=== PATIENT | male | born 1955 | race Caucasian/White ===

== ENCOUNTER 2017-07-21 07:11 | Inpatient (IN) | payer MEDICAID, OTHER ==
[~2017-07-21] VITALS: Ht 190.5 cm; Wt 81.5 kg
[2017-07-21] MEDS ORDERED: PHENAZOPYRIDINE HCL 100 MG TAB PO ONE (07:45)
[2017-07-21] MEDS ORDERED: SODIUM CHLORIDE 0.9% 1,000 ML IV ONE ×2 (07:46)
[2017-07-21 08:06] LABS: Urine Bacteria NONE SEEN /hpf (None Seen); Urine Blood Negative /uL (Negative); Urine Specific Gravity 1.033 (1.001-1.035); Urine WBC 1 /hpf (0 - 3)
[2017-07-21 08:25] LABS: Basophils # (auto) 0 uL; Eosinophils # (auto) 0 uL; Lymphocytes # (auto) 2.7 uL; Neutrophils # (auto) 4.6 uL; Platelet Count (auto) 178 10^3/uL (140-450); White Blood Cell 7.9 10^3/uL (4.4-10.8)
[2017-07-21 08:27] LABS: Basophils % (auto) 0.4 % (0.0-2.0); Eosinophils % (auto) 0.6 % (0.0-7.0); Hematocrit 51.6 % (41.0-53.0); Hemoglobin 18.3 g/dL (13.5-17.5); Lymphocytes % (auto) 34.1 % (10.0-50.0); Mean Corpuscular Hemoglobin 33.1 pg (28.0-32.0); Mean Corpuscular Hgb Conc. 35.4 g/dL (32.0-36.0); Mean Corpuscular Volume 93.5 fL (80.0-100.0); Monocytes # (auto) 0.6 uL; Monocytes % (auto) 7.1 % (0.0-12.0); Neutrophils % (auto) 57.8 % (37.0-80.0); Nucleated Red Blood Cells % 0.4 %; Red Blood Cells 5.52 10^6/uL (4.5-5.90); Red Cell Distribution Width 12.2 % (11.8-14.3)
[2017-07-21 08:37] LABS: INR 0.95 (0.9-1.15); Partial Thromboplastin Time 25.7 sec (22.64-33.71); Prothrombin Time 10.4 sec (9.37-12.3)
[2017-07-21 08:50] LABS: Anion Gap 18 (5-15); BUN/Creatinine Ratio 10.9; Blood Urea Nitrogen 15 mg/dL (7-18); Carbon Dioxide 21 mmol/L (21-32); Chloride 89 mmol/L (98-107); GFR African American 67 mL/min; GFR Non-African American 56 mL/min; Potassium 4.8 mmol/L (3.5-5.1); Sodium 128 mmol/L (136-145)
[2017-07-21 08:51] LABS: Alanine Aminotransferase 38 U/L (16-61); Albumin 4.2 g/dL (3.4-5.0); Alkaline Phosphatase 200 U/L (45-117); Aspartate Aminotransferase 16 U/L (15-37); Bilirubin, Total 0.9 mg/dL (0.2-1.0); Calcium 8.9 mg/dL (8.5-10.1)
[2017-07-21 09:08] LABS: Glucose 512 mg/dL (74-106)
[2017-07-21] MEDS: SODIUM CHLORIDE 0.9% 1,000 ML IV SCH ×4 (09:29→22:09)
[2017-07-21] MEDS ORDERED: DEXTROSE (50%) 50ML SYRG IV PRN ×2 (09:30→16:00)
[2017-07-21] MEDS ORDERED: MORPHINE SULF INJ 2 MG/ML SYRINGE 1ML IV PRN ×2 (10:00)
[2017-07-21] MEDS ORDERED: LABETALOL HCL 5 MG/ML ML 20ML VIAL IV PRN (10:00)
[2017-07-21] MEDS ORDERED: amLODIPine BESYLATE 5 MG TAB PO ONE (10:00)
[2017-07-21] MEDS ORDERED: NITROGLYCERIN 0.4 MG SL TAB SL PRN (10:00)
[2017-07-21] MEDS ORDERED: cefTRIAXone 1GM/10ml IVPUSH 10 ML IV ONE (10:00)
[2017-07-21] MEDS ORDERED: ONDANSETRON HCL 4 MG/2 ML VIAL IV PRN (10:00)
[2017-07-21 10:06] LABS: Magnesium 2.4 mg/dL (1.6-2.6); Phosphorus 2.1 mg/dL (2.5-4.90)
[2017-07-21] MEDS: InsuLIN R (HUMAN) 100 UNITS in SODIUM CHL 0.9% 99 ML IV SCH ×4 (10:07→15:29)
[2017-07-21] MEDS: ACCU-CHEK COMFORT CURVE STRIP VI SCH ×7 (10:09→22:02)
[2017-07-21] MEDS: amLODIPine BESYLATE 5 MG TAB PO SCH (10:29)
[2017-07-21] MEDS ORDERED: SODIUM CHLORIDE 0.9% 1,000 ML IV SCH (13:29)
[2017-07-21 15:31] LABS: BUN/Creatinine Ratio 14.3; Calcium 7.2 mg/dL (8.5-10.1); Magnesium 2.4 mg/dL (1.6-2.6); Potassium 3.3 mmol/L (3.5-5.1)
[2017-07-21] MEDS: InsuLIN REG 1unit/0.01ml Soln (100units/ml) SC SCH ×3 (16:00→22:04)
[2017-07-21] MEDS ORDERED: INSULIN LANTUS (GLARGINE) 1 /0.01ml (100units/ml) SC ONE (16:00)
[2017-07-21] MEDS ORDERED: POTASSIUM CHL 20 Meq TABLET PO ONE (16:00)
[2017-07-21 22:00] VITALS: BP 137/76
[2017-07-21] MEDS ORDERED: INSULIN LANTUS (GLARGINE) 1 /0.01ml (100units/ml) SC SCH (22:00)
[2017-07-22] MEDS ORDERED: INSLANTI SC (00:31)
[2017-07-22] MEDS ORDERED: INSREG3 IV (00:31)
[2017-07-22] MEDS: ACCU-CHEK COMFORT CURVE STRIP VI SCH ×5 (01:42→20:41)
[2017-07-22] MEDS: InsuLIN REG 1unit/0.01ml Soln (100units/ml) SC SCH ×5 (01:43→20:41)
[2017-07-22 05:00] VITALS: BP 145/79
[2017-07-22] MEDS: SODIUM CHLORIDE 0.9% 1,000 ML IV SCH ×2 (05:36→15:48)
[2017-07-22 06:25] LABS: Basophils # (auto) 0 uL; Basophils % (auto) 0.7 % (0.0-2.0); Eosinophils # (auto) 0.1 uL; Eosinophils % (auto) 1.2 % (0.0-7.0); Hematocrit 43.5 % (41.0-53.0); Hemoglobin 15.2 g/dL (13.5-17.5); Lymphocytes # (auto) 3.3 uL; Lymphocytes % (auto) 45.5 % (10.0-50.0); Mean Corpuscular Hemoglobin 32.4 pg (28.0-32.0); Mean Corpuscular Hgb Conc. 34.9 g/dL (32.0-36.0); Mean Corpuscular Volume 92.9 fL (80.0-100.0); Monocytes # (auto) 0.6 uL; Monocytes % (auto) 7.6 % (0.0-12.0); Neutrophils # (auto) 3.3 uL; Nucleated Red Blood Cells % 0.1 %; Platelet Count (auto) 151 10^3/uL (140-450); Red Blood Cells 4.68 10^6/uL (4.5-5.90); Red Cell Distribution Width 12.6 % (11.8-14.3); White Blood Cell 7.3 10^3/uL (4.4-10.8)
[2017-07-22] MEDS: HYDROcodone-ACET 5/325MG TAB PO PRN ×2 (06:40→22:08)
[2017-07-22 06:49] LABS: BUN/Creatinine Ratio 18.3; Bilirubin, Total 0.5 mg/dL (0.2-1.0); Calcium 7.4 mg/dL (8.5-10.1); Magnesium 2.3 mg/dL (1.6-2.6); Phosphorus 2.1 mg/dL (2.5-4.90); Potassium 3.1 mmol/L (3.5-5.1); Total Protein 5.8 g/dL (6.4-8.2)
[2017-07-22 08:00] VITALS: BP 134/75
[2017-07-22 09:00] VITALS: BP 134/75
[2017-07-22] MEDS: cefTRIAXone 1GM/10ml IVPUSH 10 ML IV SCH (10:18)
[2017-07-22] MEDS: amLODIPine BESYLATE 5 MG TAB PO SCH (10:19)
[2017-07-22 13:00] VITALS: BP 152/85
[2017-07-22] MEDS ORDERED: DEXTROSE (50%) 50ML SYRG IV PRN (13:15)
[2017-07-22] MEDS ORDERED: InsuLIN REG 1unit/0.01ml Soln (100units/ml) ONE (13:24)
[2017-07-22] MEDS ORDERED: POTASSIUM CHL 20 Meq TABLET PO ONE (14:30)
[2017-07-22 17:00] VITALS: BP 147/91
[2017-07-22] MEDS ORDERED: INSULIN LANTUS (GLARGINE) 1 /0.01ml (100units/ml) SC SCH (22:00)
[2017-07-22 22:07] VITALS: BP 120/75
[2017-07-23] MEDS: ACCU-CHEK COMFORT CURVE STRIP VI SCH ×4 (00:33→10:00)
[2017-07-23] MEDS: InsuLIN REG 1unit/0.01ml Soln (100units/ml) SC SCH ×4 (04:24→10:53)
[2017-07-23 04:53] VITALS: BP 120/63
[2017-07-23 06:16] LABS: BUN/Creatinine Ratio 12.3; Potassium 4.1 mmol/L (3.5-5.1)
[2017-07-23] MEDS: SODIUM CHLORIDE 0.9% 1,000 ML IV SCH (07:40)
[2017-07-23] MEDS: cefTRIAXone 1GM/10ml IVPUSH 10 ML IV SCH (09:00)
[2017-07-23] MEDS: amLODIPine BESYLATE 5 MG TAB PO SCH (10:54)
[2017-07-23] MEDS ORDERED: AML5T PO (11:24)
[2017-07-23] MEDS ORDERED: INSLANTI SC (11:24)
[2017-07-23 12:02] VITALS: BP 125/69
== END 2017-07-23 13:00 | disposition home or self-care (01) | DRG 420 ==
LOC: ER 07:11 → EDBD 07:11 → OVERFLOW 07:12 → WEST WING 20:48
PROVIDERS: ADMIT Internal Medicine; ATTEND Internal Medicine
DX: E11.10 Type 2 diabetes mellitus with ketoacidosis without coma (principal); N17.0 Acute kidney failure with tubular necrosis; E87.8 Other disorders of electrolyte and fluid balance, not elsewhere classified; N12 Tubulo-interstitial nephritis, not specified as acute or chronic; E86.0 Dehydration; E87.6 Hypokalemia; I10 Essential (primary) hypertension; G89.29 Other chronic pain; M54.9 Dorsalgia, unspecified; F12.10 Cannabis abuse, uncomplicated; Z79.899 Other long term (current) drug therapy; Z88.7 Allergy status to serum and vaccine; Z79.4 Long term (current) use of insulin; Z87.442 Personal history of urinary calculi; Z91.14 Patient's other noncompliance with medication regimen; Z91.19 Patient's noncompliance with other medical treatment and regimen; Z71.51 Drug abuse counseling and surveillance of drug abuser
CPT/HCPCS: 36415; 36600; 71045; 80048; 80053; 80061; 81001; 82010; 82805; 82962; 83036; 83735; 83880; 83930; 84100; 84154; 84484; 85025; 85610; 85730; 96361; 96374; J1815